=== PATIENT | male | born 1950 | race Caucasian/White ===

== ENCOUNTER 2017-11-05 16:56 | Emergency (ER) | payer MEDICARE ==
[~2017-11-05] VITALS: Ht 185.4 cm; Wt 134.3 kg
[2017-11-05 16:56] VITALS: BP_SYST 140
[2017-11-05] MEDS ORDERED: BACITRACIN 1 GM OINT TP ONE (17:30)
[2017-11-05] MEDS ORDERED: LIDOCAINE 1% 10 MG/ML, 20 ML MDV INJ ONE (17:30)
[2017-11-05 18:30] VITALS: BP_SYST 138
== END 2017-11-05 18:30 | disposition home or self-care (01) ==
LOC: SED 16:56
DX: S01.01XA Laceration without foreign body of scalp, initial encounter (principal); S69.82XA Other specified injuries of left wrist, hand and finger(s), initial encounter; W10.8XXA Fall (on) (from) other stairs and steps, initial encounter; Y93.89 Activity, other specified; Y92.89 Other specified places as the place of occurrence of the external cause; Y99.8 Other external cause status
CPT/HCPCS: 12002; 29125; 70450; 73110; 93005; 99284; J2001